=== PATIENT | female | born 1990 | race Caucasian/White ===

== ENCOUNTER 2019-05-03 14:53 | Emergency (ER) | payer OTHER ==
[2019-05-03] MEDS ORDERED: Lidocaine 1% (PF) 30 ML VIAL ONE (15:41)
[2019-05-03] MEDS ORDERED: Bacitracin 1 PK ONE (16:43)
== END 2019-05-03 17:00 | disposition home or self-care (01) ==
LOC: NAV ERS 14:53
DX: S61.210A Laceration without foreign body of right index finger without damage to nail, initial encounter (principal); W26.0XXA Contact with knife, initial encounter
CPT/HCPCS: 12001; J2001

== ENCOUNTER 2019-12-10 11:09 | Emergency (ER) | payer OTHER | END 2019-12-10 12:51 | disposition home or self-care (01) | LOC: NAV ERS 11:09 | DX: M79.604 Pain in right leg (principal) | CPT/HCPCS: 36415; 85379; 99283 ==